=== PATIENT | male | born 1970 | race Caucasian/White ===

== ENCOUNTER 2024-07-23 19:16 | Outpatient (CLI) | payer OTHER, SELFPAY ==
--- NOTE | 2024-08-01 08:55 | W.PM.SLEEP ---
Sleep Study Details Details Interpreting Provider: Etienne Date of Sleep Study: 07/23/24 Sleep Study Details: STUDY TYPE:? Home unattended ? BMI:? 28.9 ORDERING PROVIDER:? Etienne INDICATION:? Concern about sleep apnea ? SLEEP SUMMARY:? 333 minutes monitor RESPIRATORY SUMMARY:? AHI 5.8 Low oxygen 86 11.8 minutes oxygen less than 90% Snoring 24.3% PERIODIC LIMB MOVEMENTS OF SLEEP:? Not record CARDIAC:? Mean 65.6 beats per minute IMPRESSION:? Mild obstructive sleep apnea RECOMMENDATION: Treatment options include CPAP dental appliance and/or airway expansion surgery.
== END 2024-07-23 19:17 | disposition home or self-care (01) ==
LOC: SLEEP 19:17
PROVIDERS: PCP Family Medicine; Visit Provider Otolaryngology
DX: G47.33 Obstructive sleep apnea (adult) (pediatric) (principal)
CPT/HCPCS: 95806

== ENCOUNTER 2024-10-17 15:55 | Outpatient (CLI) | payer OTHER, SELFPAY | END 2024-10-17 15:56 | disposition home or self-care (01) | LOC: AMB 10-18 11:07 | PROVIDERS: PCP Family Medicine; Visit Provider Family Medicine | DX: S61.212A Laceration without foreign body of right middle finger without damage to nail, initial encounter (principal); Y28.8XXA Contact with other sharp object, undetermined intent, initial encounter; Y92.007 Garden or yard of unspecified non-institutional (private) residence as the place of occurrence of the external cause | CPT/HCPCS: A0425; A0433 ==

== ENCOUNTER 2025-08-05 09:15 | Outpatient (CLI) | payer OTHER, SELFPAY | END 2025-08-05 09:16 | disposition home or self-care (01) | LOC: FRMREF 09:16 | PROVIDERS: PCP Family Medicine; Visit Provider Family Medicine | DX: E78.5 Hyperlipidemia, unspecified (principal); N40.0 Benign prostatic hyperplasia without lower urinary tract symptoms; Z11.59 Encounter for screening for other viral diseases | CPT/HCPCS: 80053; 80061; 86803; G0103 ==